=== PATIENT | female | born 1965 | race Two or more races ===

== ENCOUNTER 2019-07-28 13:12 | Outpatient (AMBR) | payer MEDICAID, SELFPAY ==
--- NOTE | 2019-07-28 13:20 | PTNOTE_ITS ---
PT OP Initial Eval Patient Information Visit Reasons: left knee post op Medical Diagnosis: post op L knee A/S Treatment Dx #1: same Start of Care: 07/28/19 Date of Onset: 07/11/19 Initial Assessment Subjective Pt is 54 yr old kinyarwanda speaking female s/p L knee A/S about 2 weeks ago. Pt is ambulating with pain and standing more than 10 mins. Pt states the pain was intense prior to sx and the knee would swell and she was unable to climb stairs. Pt reports difficulty with HH chores due to pain and points to the back of the knee and calf mm. PMH: DM, HTN, depression, R TKA 2018 Imaging: with provider Pt goal: to walk better with less pain Objective L knee ArOM: Flexion: 109 deg Ext: full SLR: 45 deg with pain Strength: Quads and HS: 3+/5 TTP: moderate anterior knee incision scars and popliteal fossa Antalgic gait pattern with decreased stance time on Assessment Pt presentation consistent with post op L knee A/S with decreased ROM, strength and WB tolerance. Pt ambulates with decreased WB on L. Pt has pain at first resistance into knee flexion that limits end-range tolerance and PROM. Pt can SLR slowly and has slight extensor lag. Pt has good rehab potential with attainable functional improvement and requires skilled therapy in order to improve ROM, strength and gait. Eval followed by HEP with materials. Short Term and Halfway Goals 1. Independent with HEP 2. Improved knee flexion ROM to 115 deg 3. Improved quad and hamstring strength to 4/5 4. Improved ambulatory tolerance to community distances with symmetrical gait pattern. Treatment Plan 1. Manual therapy 2. Therex 3. Modalities as indicated, moist heat, ice, TENS Frequency and Duration 2x a week for 8 weeks Certification Dates: 07/28/19 to 10/28/19 Office Procedures PT Procedures PT Date of Service: 07/28/19 OP PT Eval Mod Complex 30 minutes: Yes
--- NOTE | 2019-07-30 16:10 | PT.ODAYNRPT ---
PT Outpatient Daily Note Date of Service: 07/30/19 OP Daily Note Visit Reasons: left knee post op Outpatient Physical Therapy Treatment Date: 07/30/19 Subjective: Same as time of evaluation, the knee hurts Objective: See F/S for therex Assessment: Moderate tissue irritability of L knee with open-chain therex without resistance today. Plan: Continue per POC Length of Time (minutes) of Treatment: 30 Minutes Office Procedures PT Procedures PT Date of Service: 07/28/19 OP PT Eval Mod Complex 30 minutes: Yes PT Procedures PT Date of Service: 07/30/19 Therapeutic Exercise 30 minutes: Yes
--- NOTE | 2019-08-04 11:46 | PT.ODAYNRPT ---
PT Outpatient Daily Note Date of Service: 08/04/19 OP Daily Note Pediatric or Adult Patient: Adult PT >13 Visit Reasons: left knee post op Outpatient Physical Therapy Treatment Date: 08/04/19 Subjective: Pt c/o pain in the back of the knee and under the anterior incisions. Objective: See F/S for therex MT: StM popliteal fossa, proximal gastrocs, incision scar x7' MHP x5' Assessment: Moderate tissue irritability of L knee with open-chain therex without resistance today. Moderate TTP with STM of popliteal fossa of medial HS tendons. Plan: Continue per POC Length of Time (minutes) of Treatment: 30 Minutes Office Procedures PT Procedures PT Date of Service: 07/28/19 OP PT Eval Mod Complex 30 minutes: Yes PT Procedures PT Date of Service: 07/30/19 Therapeutic Exercise 30 minutes: Yes PT Procedures PT Date of Service: 08/04/19 Therapeutic Exercise 30 minutes: Yes
--- NOTE | 2019-08-06 16:25 | PT.ODAYNRPT ---
PT Outpatient Daily Note Date of Service: 08/06/19 OP Daily Note Pediatric or Adult Patient: Adult PT >13 Visit Reasons: left knee post op Outpatient Physical Therapy Treatment Date: 08/06/19 Subjective: Pt c/o pain in the back of the knee and under the anterior incisions. Objective: See F/S for therex MT: StM popliteal fossa, proximal gastrocs, incision scar x10' Assessment: Moderate tissue irritability of L knee with open-chain therex without resistance today. Moderate TTP with STM of popliteal fossa of medial HS tendons. Plan: Continue per POC Length of Time (minutes) of Treatment: 30 Minutes Office Procedures PT Procedures PT Date of Service: 07/28/19 OP PT Eval Mod Complex 30 minutes: Yes PT Procedures PT Date of Service: 07/30/19 Therapeutic Exercise 30 minutes: Yes PT Procedures PT Date of Service: 08/04/19 Therapeutic Exercise 30 minutes: Yes PT Procedures PT Date of Service: 08/06/19 Therapeutic Exercise 30 minutes: Yes
--- NOTE | 2019-08-11 16:24 | PT.ODAYNRPT ---
PT Outpatient Daily Note Date of Service: 08/11/19 OP Daily Note Pediatric or Adult Patient: Adult PT >13 Visit Reasons: left knee post op Outpatient Physical Therapy Treatment Date: 08/11/19 Subjective: Pt c/o pain in the back of the knee that improves with massage. Objective: See F/S for therex Assessment: Less tissue irritability of L knee with open-chain therex without resistance today. Moderate TTP with STM of popliteal fossa of medial HS tendons. Plan: Continue per POC Length of Time (minutes) of Treatment: 30 Minutes Office Procedures PT Procedures PT Date of Service: 08/11/19 Therapeutic Exercise 30 minutes: Yes PT Procedures PT Date of Service: 07/28/19 OP PT Eval Mod Complex 30 minutes: Yes PT Procedures PT Date of Service: 07/30/19 Therapeutic Exercise 30 minutes: Yes PT Procedures PT Date of Service: 08/04/19 Therapeutic Exercise 30 minutes: Yes PT Procedures PT Date of Service: 08/06/19 Therapeutic Exercise 30 minutes: Yes
== END 2019-08-12 23:59 | disposition home or self-care (01) ==
PROVIDERS: PCP Physician Assistant; Referring Provider Physician Assistant; Visit Provider Orthopaedic Surgery
DX: E11.9 Type 2 diabetes mellitus without complications (principal); I10 Essential (primary) hypertension; Z96.651 Presence of right artificial knee joint
CPT/HCPCS: 97110; 97162

== ENCOUNTER → 2024-03-10 | Outpatient (CLI) | payer MEDICARE, MEDICAID, SELFPAY ==
--- NOTE | 2024-03-10 14:30 | XR_ITS ---
Examination: Screening digital mammography, bilateral Computer aided detection 3-D breast Tomosynthesis, bilateral Date and time of exam: March 10, 2024 1425 hours Compared to mammograms dating to May 14, 2017 Indication: Screening Technique: Nonmagnified MLO, CC views of the breasts to been obtained, reconstructed from 3-D Tomosynthesis images. R2 computer aided detection program utilized for evaluation of suspicious masses and/or abnormal calcifications. 3-D Tomosynthesis images obtained. Findings: Scattered areas of fibroglandular density 8mm oval mass angular margins upper outer left breast posterior depth Benign calcifications Impression: BI-RADS Category 0: Incomplete: Need additional imaging evaluation 8 mm oval mass angular margins upper outer left breast posterior depth, recommend follow-up spot tomographic views of this mass as well as left breast sonography to complete the workup.
== END | disposition home or self-care (01) ==
LOC: CDIM 14:17
PROVIDERS: Referring Provider Physician Assistant; Visit Provider Physician Assistant
DX: Z12.31 Encounter for screening mammogram for malignant neoplasm of breast (principal); N63.21 Unspecified lump in the left breast, upper outer quadrant
CPT/HCPCS: 77063; 77067

== ENCOUNTER 2024-09-18 04:17 | Emergency (ER) | payer MEDICARE, MEDICAID, SELFPAY ==
[2024-09-18 04:29] VITALS: BP 197/87; PULSE 80; RESP 18; O2SAT 100
[2024-09-18 04:32] VITALS: BMI 37.5
--- NOTE | 2024-09-18 04:38 | PC.NURSE ---
PT TO ER WITH DAUGHTER WHO STATES PT WENT TO SLEEP AND WAS AWOKEN AROUND 4AM WITH DIFFICULTY SWALLOWING PT ATTEMPTED SUCK ON ICE AND PT NOTICED SHE WASN'T ABLE TO SWALLOW ICE. PT STATES SHE FEELS THROAT CLOSING BUT DOES NOT HAVE ANY DIFFICULTY BREATHING. PT IN NAD AT THIS TIME. RESPIRATIONS ARE EVEN AND UNLABORED. VSS, DR CASTANEDA AT BEDSIDE ASSESSING PT AT THIS TIME.
--- NOTE | 2024-09-18 04:41 | PD.EDALLER ---
ED Allergic Reaction RME/HPI General Chief complaint: Allergic Reaction Stated complaint: TOUNG AND NECK SWELLING Time Seen by Provider: 09/18/24 04:44 Arrival date/time: 09/18/24 04:17 RME / HPI RME / HPI narrative: This section includes all my notes and documentations, including HPI, PE, and ED course. Carlos A Scherer MD HPI: 59 y/o female with Hx of HTN, Anxiety, and Type II DM presents with sudden tongue and throat swelling s/p waking up x 3 hours ago. Takes lisinopril. Denies rash and shortness of breath. No other complaints. ROS: All negative except as documented in HPI. Physical Exam: General: Alert and oriented. No acute distress when remaining still. Eyes: Conjunctivae and lids clear. ENT: No nasal congestion. Moderately edematous tongue noted. Patent airway. TM normal bilaterally. Neck: Supple. Heart: RRR. Lungs: No respiratory distress. Good air movement. No rhonchi, wheezing, rales. Abdomen: Soft and nontender. Skin: Warm and dry. Neuro: Alert and oriented X 3. At this point, diagnoses include: Angioedema, most likely from lisinopril. Treatment here included: Benadryl 50 mg, Pepcid 20 mg, IVF, Toradol 30 mg, SoluMedrol 125 mg X 2, Zofran 4 mg. Significant improvement noted. Recommended outpatient care. Based on my best medical judgment, made decision no further evaluation or treatment indicated at this time. Patient understands and agrees to the discharge instructions customized and printed, see below. Discharge instructions from Dr. Scherer: 1. You were treated today for allergic reaction from lisinopril. 2. To help prevent the reaction going into your airways and your throat, take prednisone as prescribed. 3. And take Benadryl 50 mg every 6-8 hours today and tomorrow then as needed. 4. Increase oral fluid and maintain clear urine.? If dark or yellow, increase oral fluid.? This will help eliminate any allergens in your blood system. 5. Discontinue lisinopril. Take clonidine twice daily as prescribed. 6. See your private doctor on 09/19/2024 for recheck, including BP check. Ask for a referral to see an cost control analyst so you can be tested to know what to avoid in the future. 7. Seek immediate medical care with worsening, breathing difficulty, or with any concerns. Carlos A Scherer MD Related Data Home Medications ?Medication ?Instructions ?Recorded ?Confirmed lisinopril 20 mg tablet 20 mg PO QDAY 07/10/19 06/04/20 metformin 1,000 mg tablet 1,000 mg PO BID 07/10/19 06/04/20 metoprolol succinate 50 mg 50 mg PO QDAY 07/10/19 06/04/20 tablet,extended release 24 hr venlafaxine 37.5 mg tablet 37.5 mg PO QDAY 07/10/19 06/04/20 Previous Rx's ?Medication ?Instructions ?Recorded ibuprofen 600 mg tablet 600 mg PO TID PRN pain #14 tabs 10/30/23 clonidine HCl 0.1 mg tablet 0.1 mg PO BID #60 tabs 09/18/24 Allergies Allergy/AdvReac Type Severity Reaction Status Date / Time No Known Allergies Allergy Unknown Verified 09/18/24 04:29 Review of Systems Review of Systems Systems Reviewed: All systems reviewed, normal except as documented Past Medical History Past Medical History CARDIAC: Positive Cardiac Disorders and Hypertension MUSCULOSKELETAL: Positive Musculoskeletal Disorders and Arthritis ENDOCRINE: Positive Endocrine Disorders and Diabetes Mellitus Type 2 PSYCHO/SOCIAL: Positive Depression and Anxiety Surgical History SURGICAL: Positive Joint Replacement and Tubal Ligation ED Exam Narrative Physical exam: Refer to HPI Course Quality Measures none Orders Category Date Time Status Saline [Insert IV] NOW Care 09/18/24 04:35 Completed DiphenhydrAMINE INJ [Benadryl Inj] Med 09/18/24 04:36 Discontinued 50 mg IVP X1 STA Famotidine Inj [Pepcid Inj] Med 09/18/24 04:36 Discontinued 20 mg IVP X1 ONE Ketorolac Inj [Toradol Inj] Med 09/18/24 04:36 Discontinued 30 mg IVP X1 ONE MethylPREDNISolone.* [SoluMEDROL Inj] Med 09/18/24 04:36 Discontinued 125 mg IVP X1 ONE MethylPREDNISolone.* [SoluMEDROL Inj] Med 09/18/24 05:33 Discontinued 125 mg IVP X1 ONE Ondansetron Inj [Zofran Inj] Med 09/18/24 04:36 Discontinued 4 mg IVP X1 ONE Sodium Chloride 0.9% 1000 ml [Ns] 1,000 ml Med 09/18/24 04:36 Discontinued IV 999 mls/hr Sodium Chloride 0.9% 1000 ml [Ns] 1,000 ml Med 09/18/24 05:33 Discontinued IV 999 mls/hr Vital Signs Vital signs: Vital Signs Pulse Rate 80 09/18/24 04:29 Respiratory Rate 18 09/18/24 04:29 Blood Pressure 197/87 H 09/18/24 04:29 Pulse Oximetry (%) 100 09/18/24 04:29 Oxygen Delivery Method Room Air 09/18/24 04:29 Allergic Reaction MDM Narrative MDM Narrative:: Scribe Attestation: I, Shanice Gary, am scribing for and in the presence of Dr. Scherer. Provider Notation: Although this document has been carefully reviewed, there may still be some phonetic and other typographical errors.? These errors are purely grammatical due to imperfections in the software program and should not be construed in any way to? compromise the substance of the patient's medical care during this visit. 59 y/o female with Hx of HTN, Anxiety, and Type II DM presents with sudden tongue and throat swelling s/p waking up x 3 hours ago. Denies rash and shortness of breath. No other complaints. Patient data External records reviewed:: [facility] previous records (Reviewed prior ED records from 10/29/23 . Patient was seen for Bilateral flank pain.) Clinical information provided by:: patient Social determinants that could affect healthcare access:: none Patient has the following chronic illnesses:: Hypertension, Arthritis, Diabetes Mellitus Type 2, Depression and Anxiety How is presenting disease/condition affected by chronic disease/condition?: exacerbated by Evaluation data The following diagnostics were reviewed and interpreted by me:: other (specify) (No diagnostic tests ordered. ) Lab and/or radiology exams considered but not ordered:: None Interpretation Summary: No diagnostic tests ordered. Medications / Prescriptions Medications or Prescriptions considered but not ordered:: None Medication administrations:: Medication Administration History Discontinued Medications Diphenhydramine HCl (Diphenhydramine Inj 50 Mg/Ml Vial) 50 mg IVP X1 STA Stop: 09/18/24 04:37 Last Admin: 09/18/24 04:48 Dose: 50 mg Documented By: EE Famotidine (Famotidine Inj 10 Mg/Ml Vial 2 Ml) 20 mg IVP X1 ONE Stop: 09/18/24 04:37 Last Admin: 09/18/24 04:45 Dose: 20 mg Documented By: EE Sodium Chloride (Ns) 1,000 mls @ 999 mls/hr IV .Q1H1M ONE Stop: 09/18/24 05:36 Last Infusion: 09/18/24 05:53 Dose: Infused Documented By: Admin: 09/18/24 04:44 Dose: 999 mls/hr Documented By: EE Sodium Chloride (Ns) 1,000 mls @ 999 mls/hr IV .Q1H1M ONE Stop: 09/18/24 06:33 Last Infusion: 09/18/24 06:31 Dose: Infused Documented By: Admin: 09/18/24 05:46 Dose: 999 mls/hr Documented By: EE Ketorolac Tromethamine (Ketorolac Inj 30 Mg/Ml Vial) 30 mg IVP X1 ONE Stop: 09/18/24 04:37 Last Admin: 09/18/24 04:46 Dose: 30 mg Documented By: EE Methylprednisolone Sodium Succinate (Methylprednisolone Sod Succ 62.5 Mg/Ml 2ml Vial) 125 mg IVP X1 ONE Stop: 09/18/24 04:37 Last Admin: 09/18/24 04:47 Dose: 125 mg Documented By: EE Methylprednisolone Sodium Succinate (Methylprednisolone Sod Succ 62.5 Mg/Ml 2ml Vial) 125 mg IVP X1 ONE Stop: 09/18/24 05:34 Last Admin: 09/18/24 05:45 Dose: 125 mg Documented By: EE Ondansetron HCl (Ondansetron Inj 2 Mg/Ml Inj 2 Ml) 4 mg IVP X1 ONE; Protocol Stop: 09/18/24 04:37 Last Admin: 09/18/24 04:46 Dose: 4 mg Documented By: EE Benadryl 50 mg, Pepcid 20 mg, IVF, Toradol 30 mg, SoluMedrol 125 mg X 2, Zofran 4 mg. Consultations Consultation(s) initiated? (list below): No Diagnosis Differential Diagnosis allergic reaction: anaphylaxis, allergic reaction, angioedema, contact dermatitis, adverse reaction to drug, viral enanthem and urticaria Most likely diagnosis given after review of the tests above:: Angioedema, most likely from lisinopril. Admission Indicated Admission indicated?: not indicated Explain why admission is indicated or not indicated:: With significant improvement and no condition needing emergent intervention, there was no indication for admission. Admission Request Was there a request for admission?: No Disposition Plan Disposition Plan: Discharge Discharge Attestation Discharge Attestation: The patient and all family members were given an opportunity to ask questions and understood the discharge instructions. Discharge instructions specifically effects, indications for sooner follow up or return to the emergency department, and the expected course of current diagnosis. Patient condition: Stable Discharge Plan Plan Patient Disposition: HOME (Self Care) Prescriptions/Referrals Prescriptions/Med Rec: New clonidine HCl 0.1 mg tablet 0.1 mg PO BID Qty: 60 0RF No Action lisinopril 20 mg Tablet 20 mg PO QDAY venlafaxine 37.5 mg Tablet 37.5 mg PO QDAY metformin 1,000 mg Tablet 1,000 mg PO BID metoprolol succinate 50 mg Tablet Extended Release 24 Hr 50 mg PO QDAY ibuprofen 600 mg tablet 600 mg PO TID PRN (Reason: pain) Qty: 14 0RF Problem List Clinical Impression: Angioedema Patient/Caregiver Discharge Instructions Discharge Activity: activity as tolerated Education Materials: ED Angioedema Additional Instructions: Discharge instructions from Dr. Scherer: 1. You were treated today for allergic reaction from lisinopril. 2. To help prevent the reaction going into your airways and your throat, take prednisone as prescribed. 3. And take Benadryl 50 mg every 6-8 hours today and tomorrow then as needed. 4. Increase oral fluid and maintain clear urine.? If dark or yellow, increase oral fluid.? This will help eliminate any allergens in your blood system. 5. Discontinue lisinopril. Take clonidine twice daily as prescribed. 6. See your private doctor on 09/19/2024 for recheck, including BP check. Ask for a referral to see an cost control analyst so you can be tested to know what to avoid in the future. 7. Seek immediate medical care with worsening, breathing difficulty, or with any concerns. Instrucciones de imtiaz del Dr. Shcerer: 1. Hoy recibi? tratamiento por malinda reacci?n al?rgica al lisinopril. 2. Para ayudar a prevenir que la reacci?n se propague a las v?as respiratorias y la garganta, tome prednisona seg?n lo prescrito. 3. [place] Benadryl 50 mg cada 6-8 horas hoy y ma?naveen, seg?n sea necesario. 4. Aumente la ingesta de l?quidos y mantenga la orina rik. Si la orina es oscura o amarilla, aumente la ingesta de l?quidos. [place] ayudar? a eliminar cualquier al?rgeno presente en herrera sistema sangu?henry. 5. Suspenda el lisinopril. [place] clonidina dos veces al d?a seg?n lo prescrito. 6. Consulte a herrera m?dico el 09/19/2024 para malinda nueva revisi?n, incluyendo la tony de presi?n arterial. [place] malinda derivaci?n a un alerg?logo para que le realicen pruebas y sepa qu? debe evitar en el futuro. 7. [place] atenci?n m?dica inmediata si presenta empeoramiento de la condici?n, dificultad para respirar o cualquier inquietud. Print Language: [place] Stand Alone Forms: [employer]enni Award Info., Patient Portal Info Letter
[2024-09-18] MEDS: SODIUM CHLORIDE 0.9% 1000 ML 1,000 ML 999 ML IV ×2 (04:44→05:46)
[2024-09-18] MEDS: FAMOTIDINE INJ 10 MG/ML VIAL 2 ML 20 MG IVP (04:45)
[2024-09-18] MEDS: KETOROLAC INJ 30 MG/ML VIAL IVP (04:46)
[2024-09-18] MEDS: ONDANSETRON INJ 2 MG/ML INJ 2 ML 4 MG IVP (04:46)
[2024-09-18] MEDS: MethylPREDNISolone SOD SUCC 62.5 MG/ML 2ML VIAL 125 MG IVP ×2 (04:47→05:45)
[2024-09-18 04:49] VITALS: BP 149/100; PULSE 82; RESP 18; O2SAT 99
[2024-09-18 05:54] VITALS: BP 132/95; PULSE 64; RESP 18; TEMP 36.6; O2SAT 97
== END 2024-09-18 06:32 | disposition home or self-care (01) ==
LOC: SERX 06:54
PROVIDERS: Emergency Provider Emergency Medicine; PCP Physician Assistant
DX: T78.3XXA Angioneurotic edema, initial encounter (principal)
CPT/HCPCS: 80048; 83735; 85025; 96361; 96374; 96375; 96376; 99283; J1200; J1885; J2405; J2919; J3490; J7030